=== PATIENT | male | born 1955 | race Caucasian/White ===

== ENCOUNTER 2022-10-04 17:00 | Observation (INO) | payer SELFPAY ==
[2022-10-04] VITALS (24 sets, daily range): BP systolic 141–178; BP diastolic 80–95; PULSE 62; RESP 18; TEMP 36.9; O2SAT 93–100
--- NOTE | ~2022-10-04 | XR_ITS ---
XR abdomen/kub 1V 10/05/2022 08:51 Indication: Left renal stones Procedure: KUB Comparison: CT dated 10/04/2022 Findings: There are left renal stones, the largest vaguely outline measuring 11 mm. Bowel pattern is nonobstructive. Lung bases unremarkable. There is lumbar spondylosis. Mild osteoarthritis of the hips . No acute osseous abnormality. Impression: 1: Left nephrolithiasis. Reviewed, dictated and finalized at location B. Impression: 1: Left nephrolithiasis.
--- NOTE | ~2022-10-04 | CT_ITS ---
EXAMINATION: CT abdomen pelvis w con DATE: 10/04/2022 20:06 INDICATION: Flank pain. Low abdominal pain. TECHNIQUE: Computed tomography (CT) of the abdomen and pelvis was performed with 100 mL Omnipaque 350 intravenous contrast. Automated exposure control and iterative reconstruction technique were employe d. The dose-length product was 736.76 mGy-cm. COMPARISON: None. FINDINGS: The visualized portions of the lung bases demonstrate mild atelectasis. No pleural effusion . Cardiomegaly is noted. There are coronary artery calcifications. No pericardial effusion. There are cysts in the liver measuring up to 2.3 cm. The gallbladder, spleen, pancreas, and adrenal glands are normal. There is cortical thinning of the kidneys. There are cysts in right kidney measuring up to 5 mm. There is a 5 mm stone in left kidney. There is a 10 mm stone in left renal pelvis. There is urot helial thickening in left renal pelvis with surrounding fat stranding, consistent with inflammation. The prostate is mildly enlarged. There is an umbilical hernia containing fat. The appendix measures 9 mm in diameter. There is no fat stranding around the appendix. There is fat stranding at the root of the small bowel mesentery. There are no pathologically enlarged lymph nodes. There is no free intrap eritoneal fluid. Aortic atherosclerosis is noted. There is mild thoracic and lumbar spondylosis. Ther e is a chronic burst fracture of T12. IMPRESSION: 1. Stones in the left kidney and left renal pelvis with left-sided pyelitis. 2. Fat stranding at the root of the small bowel mesentery, consistent with edema versus inflammation/ scarring (mesenteric panniculitis). 3. Umbilical hernia containing fat. 4. Appendiceal diameter of 9 mm, which is indeterminate for appendicitis. Reviewed, dictated and finalized at location E. IMPRESSION: 1. Stones in the left kidney and left renal pelvis with left-sided pyelitis. 2. Fat stranding at the root of the small bowel mesentery, consistent with gloria a versus inflammation/scarring (mesenteric panniculitis). 3. Umbilical hernia containing fat. 4. Appendiceal diameter of 9 mm, which is indeterminate for appendicitis.
--- NOTE | 2022-10-04 18:45 | ED.MALEGU ---
HPI - Male Genitourinary General Chief complaint: Urogenital-Male Stated complaint: left testicle pain/kidney pain Time Seen by Provider: 10/04/22 18:45 Source: patient Mode of arrival: ambulatory Limitations: language barrier (hearing impairment) History of Present Illness HPI Narrative: Patient is a 67-year-old male with a history of hypertension and hearing impairment, presenting to the emergency department for evaluation lower abdominal pain. Patient reports a 4-day history of intermittent lower abdominal pain that was dull, aching in nature. No significant flank pain. No testicular pain. No dysuria, hematuria, urinary frequency or straining with urination. Patient denies fever, chills, nausea and vomiting. Patient reports pain is aching in nature, denies radiation into the upper abdomen or chest. Denies associated cough or shortness of breath. Patient reports previous diagnosis of kidney stone on the left. No recurrent pain. Patient states that pain is currently resolved at the time of my assessment. Related Data Allergies Allergy/AdvReac Type Severity Reaction Status Date / Time No Known Allergies Allergy Verified 10/04/22 17:02 Review of Systems Review of Systems: CONSTITUTIONAL: Denies fever, chills, or sweats. EYES: Denies visual changes, redness, or discharge. ENT: Denies rhinorrhea, congestion, sore throat, or otalgia. CARDIOVASCULAR: Denies chest pain, palpitations, or edema. RESPIRATORY: Denies cough or dyspnea. GASTROINTESTINAL: Denies current abdominal pain, nausea, vomiting, or diarrhea. GENITOURINARY: Denies dysuria or hematuria. SKIN: Denies rash or itching. MUSCULOSKELETAL: Denies back pain, joint pain, or myalgia. NEUROLOGIC: Denies headache, numbness, or weakness. [facility] Past Medical History Medical History (Updated 10/04/22 @ 22:17 by Mirian Macias MD) Hypertension Mesenteric panniculitis Exam Narrative: GENERAL: Awake, alert, conversant HEAD: Normocephalic, atraumatic. EYES: PERRLA and EOMI. ENT: Nares clear, no rhinorrhea or epistaxis. Mucous membranes moist. Patient with right tympanic membrane with mild edema, discharge present, there is earwax present, mild erythema of the external ear canal. Left external ear canal is edematous, erythematous, difficult to view tympanic membrane. No postauricular erythema. NECK: Supple. CHEST: No respiratory distress, breathing even and non labored HEART: Regular rate, sinus rhythm ABDOMEN:Non distended, non tender in the right lower quadrant, left lower quadrant, left CVA tenderness mild EXTREMITIES: Normal range of motion. No edema. SKIN: Warm, dry, no rash. NEURO:No focal deficits. Alert and oriented x3 Course Vital Signs Vital signs: Vital Signs Temperature 36.9 C 10/04/22 17:19 Pulse Rate 62 10/04/22 17:19 Respiratory Rate 18 10/04/22 17:19 Blood Pressure 178/89 H 10/04/22 17:19 Pulse Oximetry 97 10/04/22 17:19 Oxygen Delivery Room Air 10/04/22 17:19 Temperature 36.9 C 10/04/22 17:19 Pulse Rate 62 10/04/22 17:19 Respiratory Rate 18 10/04/22 17:19 Blood Pressure 178/89 H 10/04/22 17:19 Pulse Oximetry 97 10/04/22 17:19 Oxygen Delivery Room Air 10/04/22 17:19 MDM - Male Genitourinary MDM Narrative Medical decision making narrative: Medical decision making narrative: -Presentation: Patient presenting for evaluation of abdominal pain and left flank pain in the history of known nephrolithiasis. At the time of assessment, patient is mildly hypertensive, other vital signs are stable. No pain at the time of my assessment although I can elicit mild left flank tenderness on exam. Patient also with what appears to be bilateral otitis externa, greater on the left when compared to the right. No postauricular erythema or tenderness. -DDX includes but is not limited to: Mastoiditis, otitis externa, pyelonephritis, nephrolithiasis, renal colic -Co-morbidities complicating care: Hypert
[2022-10-04 19:29] LABS: Basophils Absolute Auto 0.1 K/mm3 (0.0-0.1); Basophils Percent Auto 0.8 % (0.2-1.2); Eosinophils Absolute Auto 0.3 K/mm3 (0-0.3); Hematocrit 47.3 % (42.0-52.0); Hemoglobin 16.1 g/dL (14.0-18.0); Immature Granulocyte Absolute 0.02 K/mm3 (0.00-0.031); Immature Granulocyte Percent A 0.3 % (0-0.5); Lymphocytes Absolute Auto 1.64 K/mm3 (0.9-3.2); Lymphocytes Percent Auto 24.8 % (18.3-44.2); Mean Corpuscular Hemoglobin 30.5 pg (26-34); Mean Corpuscular Volume 89.6 fl (80-100); Mean Platelet Volume 9.1 fl (7.4-10.4); Monocytes Absolute Auto 0.7 K/mm3 (0.1-0.6); Monocytes Percent Auto 10.4 % (2.6-8.5); Neutrophils Absolute Auto 3.9 K/mm3 (1.3-6.7); Neutrophils Percent Auto 58.7 % (45.5-73.1); Platelet Count Result 193 k/mm3 (150-375); Red Blood Count 5.28 M/mm3 (4.6-6.20); Red Cell Distribution Width 13.1 % (11.5-14.5); White Blood Count 6.6 K/mm3 (4.5-10.0)
[2022-10-04 19:38] LABS: Alanine Aminotransferase 32 U/L (6-50); Albumin Level 4.4 g/dL (3.5-5.1); Alkaline Phosphatase 74 U/L (38-126); Anion Gap 5 mmol/L (8-16); Aspartate Amino Transferase 31 U/L (17-59); Blood Urea Nitrogen 19 mg/dL (9-20); Carbon Dioxide 29 mmol/L (22-30); Chloride 103 mmol/L (98-107); Estimated CRCL calculation 70 ml/min; Estimated Glomerular Filt Rate > 60; Glucose 93 mg/dL (65-110); Lipase 75 U/L (23-300); Potassium 4.1 mmol/L (3.4-5.0); Sodium 137 mmol/L (137-145)
[2022-10-04 19:51] LABS: Appearance Urine Clear (Clear); Bacteria Urine None Seen /hpf; Bilirubin Urine Negative (Negative); Blood Urine 2+ (Negative); Color Urine Yellow (Yellow); Glucose Urine UA Negative (Negative); Ketones Urine Negative (Negative); Leukocyte Esterase Ur Negative LEU/UL (Negative); Nitrate Urine Negative (Negative); Protein Urine 2+ mg/dL (Negative); Squamous Epithelial Cell Urine None seen /hpf (Few); WBC Urine 0-5 /hpf; pH Urine 5.5 (5.0-9.0)
[2022-10-04 19:58] LABS: Add Urine Microscopic? YES
[2022-10-04] MEDS: SODIUM CHLORIDE 0.9% IV 1,000 ML 999 ML IV CONT (21:20)
--- NOTE | 2022-10-04 21:50 | PM.IMHP ---
H&P: HPI History of Present Illness Date/Time: 10/04/22 21:50 Chief Complaint: 57 years old male with past medical history of hearing impairment hypertension presented to the hospital with lower abdominal pain dull in nature worsening gradually denies fever or chills denies nausea or vomiting patient has history of kidney stone in the past CT scan of the abdomen concern for left kidney stone and left pyelitis urology was consulted also mesenteric panniculitis also concern for acute appendicitis general surgery was consulted patient was started on broad-spectrum IV antibiotics patient also complained of ear pain associated with ear discharge patient stated that he had a fall in the past with small hematoma had CT twice and was told that the hematoma was resolved probable otitis externa started on Cipro otic drops ENT was consulted Patient is deaf use writing to communicate Review of Systems Review of Systems: Twelve system review was negative except above [facility] Past Medical History Medical History (Updated 10/04/22 @ 22:17 by Mirian Macias MD) Hypertension Mesenteric panniculitis Meds Home Medications and Allergies Allergies Allergy/AdvReac Type Severity Reaction Status Date / Time No Known Allergies Allergy Verified 10/04/22 17:02 Vital Signs Vital Signs - 24 hr 10/04/22 17:19 Temperature 98.4 F Pulse Rate 62 Respiratory Rate 18 Blood Pressure 178/89 H Pulse Oximetry 97 Oxygen Delivery Room Air Exam Narrative: GENERAL: Well appearing, well-nourished, non-toxic, in no acute distress. HEAD: Year tenderness NECK: Supple. No adenopathy, no masses. RESPIRATORY: Airway patent, respirations nonlabored. Clear to auscultation bilaterally, no rales, rhonchi, wheezing. CARDIOVASCULAR: Regular rate and rhythm without murmurs ABDOMINAL: Positive tenderness MUSCULOSKELETAL: No edema. SKIN: Warm, dry, normal color. No rashes. NEURO: Moves all extremities PSYCHIATRIC: Appropriate mood and affect. Normal interaction. H&P: Results Labs Labs: Short CBC 10/04/22 Range/Units 19:24 WBC 6.6 (4.5-10.0) K/mm3 Hgb 16.1 (14.0-18.0) g/dL Hct 47.3 (42.0-52.0) % Plt Count 193 (150-375) k/mm3 [facility] 10/04/22 19:24 Sodium 137 Potassium 4.1 Chloride 103 Carbon Dioxide 29 BUN 19 Creatinine 0.90 Glucose 93 Calcium 9.0 Liver Function 10/04/22 Range/Units 19:24 Total Bilirubin 1.0 (0.2-1.3) mg/dL AST 31 (17-59) U/L ALT 32 (6-50) U/L Alkaline Phosphatase 74 (38-126) U/L Albumin 4.4 (3.5-5.1) g/dL Urine 10/04/22 Range/Units 19:33 Urine Color Yellow (Yellow) Urine Appearance Clear (Clear) Urine pH 5.5 (5.0-9.0) Ur Specific Roberts 1.030 (1.001-1.035) Urine Protein 2+ H (Negative) mg/dL Urine Glucose (UA) Negative (Negative) mg/dL Assessment and Plan Assessment and plan (1) Acute pyelitis: Code(s): N10 - Acute pyelonephritis Status: Acute Assessment and Plan: Follow urine culture Reviewed CBC CMP UA discussed with ER physician Continue IV antibiotic As multiple kidney stones Urology was consulted Continue IV Zosyn for now (2) Acute otitis externa of left ear: Code(s): H60.502 - Unspecified acute noninfective otitis externa, left ear Status: Acute Assessment and Plan: Cipro otic ear drop (3) Kidney stone: Code(s): N20.0 - Calculus of kidney Status: Acute Assessment and Plan: Urology consult continue IV antibiotic (4) Abnormal CT of the abdomen: Code(s): R93.5 - Abnormal findings on diagnostic imaging of other abdominal regions, including retroperitoneum Status: Acute Assessment and Plan: Concern for appendicitis IV antibiotics general surgeon was consulted (5) Mesenteric panniculitis: Code(s): K65.4 - Sclerosing mesenteritis Status: Acute Assessment and Plan: Probable viral versus bacterial mesenteri
[2022-10-05] VITALS (7 sets, daily range): BP systolic 143–171; BP diastolic 79–96; PULSE 51–66; RESP 16–18; TEMP 36.5–36.7; O2SAT 98–100; BMI 29.5
[2022-10-05 00:21] LABS: CRP 0.6 mg/dL (<1.0)
[2022-10-05] MEDS: SODIUM CHLORIDE 0.9% IV 1,000 ML 100 ML IV CONT (00:25)
[2022-10-05] MEDS: CIPROFLOXACIN HC OTIC 10 ML 5 DROP EACH EAR ×2 (00:28→08:53)
[2022-10-05 01:08] LABS: Procalcitonin 0.1 ng/mL
--- NOTE | 2022-10-05 01:20 | ADMGEN ---
This patient, Raymundo Rios, was admitted to Medical Room 252-01. Patient/family oriented to hospital policies and general routines including ID bracelet, bed and alarms, visiting hours, pain management, procedures, bathroom and other care routines, personal items, smoking policy, room service/diet, and visiting hours. Information on how to activate the Rapid Response Team has been discussed. Patient/Family are encouraged to report perceived risks to care and to ask questions if they do not understand what they are told or what they should do.
[2022-10-05 05:03] LABS: Basophils Percent Auto 0.6 % (0.2-1.2); Eosinophils Absolute Auto 0.3 K/mm3 (0-0.3); Eosinophils Percent Auto 6.2 % (0-4.4); Hematocrit 44.2 % (42.0-52.0); Immature Granulocyte Absolute 0.01 K/mm3 (0.00-0.031); Immature Granulocyte Percent A 0.2 % (0-0.5); Lymphocytes Absolute Auto 1.51 K/mm3 (0.9-3.2); Lymphocytes Percent Auto 31.1 % (18.3-44.2); Mean Corpuscular HGB Conc 33.9 g/dl (32-36); Mean Corpuscular Hemoglobin 30.1 pg (26-34); Mean Corpuscular Volume 88.8 fl (80-100); Monocytes Absolute Auto 0.5 K/mm3 (0.1-0.6); Monocytes Percent Auto 10.3 % (2.6-8.5); Neutrophils Absolute Auto 2.5 K/mm3 (1.3-6.7); Neutrophils Percent Auto 51.6 % (45.5-73.1); Platelet Count Result 165 k/mm3 (150-375); Red Blood Count 4.98 M/mm3 (4.6-6.20); Red Cell Distribution Width 13.1 % (11.5-14.5); White Blood Count 4.9 K/mm3 (4.5-10.0)
[2022-10-05 05:13] LABS: Alanine Aminotransferase 28 U/L (6-50); Albumin Level 3.8 g/dL (3.5-5.1); Alkaline Phosphatase 66 U/L (38-126); Anion Gap 4 mmol/L (8-16); Aspartate Amino Transferase 27 U/L (17-59); Bilirubin,Total 1.3 mg/dL (0.2-1.3); Blood Urea Nitrogen 16 mg/dL (9-20); Calcium 8.3 mg/dL (8.4-10.2); Carbon Dioxide 26 mmol/L (22-30); Chloride 106 mmol/L (98-107); Estimated CRCL calculation 78 ml/min; Estimated Glomerular Filt Rate > 60; Glucose 90 mg/dL (65-110); Potassium 3.9 mmol/L (3.4-5.0); Sodium 136 mmol/L (137-145)
[2022-10-05] MEDS: PIPERACILLN/TAZ 3.375GM/NS50ML 3.375 GM/50 ML BAG IVPB ×3 (05:17→12:32)
--- NOTE | 2022-10-05 07:53 | P.PNIM_ITS ---
Progress Note: A&P Assessment and Plan (1) Acute pyelitis: Code(s): N10 - Acute pyelonephritis Status: Acute Assessment and Plan: * UA showed blood in the urine * CT of the abd/pel showed stones in the left kidney and left renal pelvis with left-sided pyelitis * Reviewed CBC CMP UA discussed with ER physician * Continue IV antibiotic * As multiple kidney stones * Urology was consulted * Continue IV Zosyn for now (2) Acute otitis externa of left ear: Code(s): H60.502 - Unspecified acute noninfective otitis externa, left ear Status: Acute Assessment and Plan: * Cipro otic ear drop * Dr. Phipps consulted * Trend symptoms (3) Kidney stone: Code(s): N20.0 - Calculus of kidney Status: Acute Assessment and Plan: * Urology consult * Continue IV antibiotic * CT does indicated stones * Lithotripsy possibly today * trend urine output * Bladder scan if indicated (4) Abnormal CT of the abdomen: Code(s): R93.5 - Abnormal findings on diagnostic imaging of other abdominal regions, including retroperitoneum Status: Acute Assessment and Plan: * Concern for appendicitis * IV antibiotics continued * general surgery consulted * Pain medications ordered (5) Mesenteric panniculitis: Code(s): K65.4 - Sclerosing mesenteritis Status: Acute Assessment and Plan: * Probable viral versus bacterial mesenteric panniculitis * Continue IV antibiotics * Conservative measures * IV fluids (6) Hypertension: Code(s): I10 - Essential (primary) hypertension Status: Acute Assessment and Plan: * Currently BP is 143/79 * Continue home medications * Added p.r.n. hydralazine * Trend blood pressure * Adjust therapy as indicated Time Spent With Patient Time: 48 minutes Time with patient: Greater than 35 minutes Subjective Date/time seen: 10/05/22 07:53 Interval history: 10/05/22 10/04/22? 21:50 57 years old male with past medical history of hearing impairment hypertension presented to the hospital with lower abdominal pain dull in nature worsening gradually denies fever or chills denies nausea or vomiting patient has history of kidney stone in the past CT scan of the abdomen concern for left kidney stone and left pyelitis urology was consulted also mesenteric panniculitis also concern for acute appendicitis general surgery was consulted patient was started on broad-spectrum IV antibiotics patient also complained of ear pain associated with ear discharge patient stated that he had a fall in the past with small hematoma had CT twice and was told that the hematoma was resolved probable otitis externa started on Cipro otic drops ENT was consulted Patient is deaf use writing to communicate Review of Systems Review of Systems: All systems reviewed & are unremarkable except as noted in HPI and below Exam Narrative: General: well-nourished, well-appearing 67-year-old male, sitting up in bed, comfortable, NARD Neuro: awake, alert and oriented x4, speech clear, no focal neuro deficits noted HEENMT: normocephalic, atraumatic, EOMI, sclerae anicteric, moist oral mucosa Respiratory: Clear to auscultation bilaterally without crackles, rhonchi or wheezes, nonlabored breathing C
--- NOTE | 2022-10-05 07:53 | PM.IMPN ---
Progress Note: A&P Assessment and Plan (1) Acute pyelitis: Code(s): N10 - Acute pyelonephritis Status: Acute Assessment and Plan: UA showed blood in the urine CT of the abd/pel showed stones in the left kidney and left renal pelvis with left-sided pyelitis Reviewed CBC CMP UA discussed with ER physician Continue IV antibiotic As multiple kidney stones Urology was consulted Continue IV Zosyn for now (2) Acute otitis externa of left ear: Code(s): H60.502 - Unspecified acute noninfective otitis externa, left ear Status: Acute Assessment and Plan: Cipro otic ear drop Dr. Phipps consulted Trend symptoms (3) Kidney stone: Code(s): N20.0 - Calculus of kidney Status: Acute Assessment and Plan: Urology consult Continue IV antibiotic CT does indicated stones Lithotripsy possibly today trend urine output Bladder scan if indicated (4) Abnormal CT of the abdomen: Code(s): R93.5 - Abnormal findings on diagnostic imaging of other abdominal regions, including retroperitoneum Status: Acute Assessment and Plan: Concern for appendicitis IV antibiotics continued general surgery consulted Pain medications ordered (5) Mesenteric panniculitis: Code(s): K65.4 - Sclerosing mesenteritis Status: Acute Assessment and Plan: Probable viral versus bacterial mesenteric panniculitis Continue IV antibiotics Conservative measures IV fluids (6) Hypertension: Code(s): I10 - Essential (primary) hypertension Status: Acute Assessment and Plan: Currently BP is 143/79 Continue home medications Added p.r.n. hydralazine Trend blood pressure Adjust therapy as indicated Time Spent With Patient Time: 48 minutes Time with patient: Greater than 35 minutes Subjective Date/time seen: 10/05/22 07:53 Interval history: 10/05/22 10/04/22? 21:50 57 years old male with past medical history of hearing impairment hypertension presented to the hospital with lower abdominal pain dull in nature worsening gradually denies fever or chills denies nausea or vomiting patient has history of kidney stone in the past CT scan of the abdomen concern for left kidney stone and left pyelitis urology was consulted also mesenteric panniculitis also concern for acute appendicitis general surgery was consulted patient was started on broad-spectrum IV antibiotics patient also complained of ear pain associated with ear discharge patient stated that he had a fall in the past with small hematoma had CT twice and was told that the hematoma was resolved probable otitis externa started on Cipro otic drops ENT was consulted Patient is deaf use writing to communicate Review of Systems Review of Systems: All systems reviewed & are unremarkable except as noted in HPI and below Exam Narrative: General: well-nourished, well-appearing 67-year-old male, sitting up in bed, comfortable, NARD Neuro: awake, alert and oriented x4, speech clear, no focal neuro deficits noted HEENMT: normocephalic, atraumatic, EOMI, sclerae anicteric, moist oral mucosa Respiratory: Clear to auscultation bilaterally without crackles, rhonchi or wheezes, nonlabored breathing Cardio: regular rate, regular rhythm with S1-S2 Abdomen: nondistended, normoactive bowel sounds, soft, nontender to palpation Extremities: no edema, erythema, or tenderness to palpation, DP pulses 2+ bilaterally Skin: no rashes or lesions, warm and dry Psych: appropriate mood and affect, judgment and insight intact Objective Data Vital Signs Vital Signs: Vital Signs - 24 hr 10/04/22 17:19 10/04/22 17:50 10/04/22 17:52 Temperature 98.4 F Pulse Rate 62 Respiratory Rate 18 Blood Pressure 178/89 H 168/87 H Pulse Oximetry 97 97 98 Oxygen Delivery Room Air 10/04/22 18:00 10/04/22 18:01 05
[2022-10-05] MEDS: ACETAMINOPHEN 325 MG TABLET 650 MG PO (08:52)
[2022-10-05] MEDS: lisinopriL 20 MG TABLET PO (08:53)
[2022-10-05] MEDS: METOPROLOL TARTRATE 50 MG TAB PO (08:53)
[2022-10-05] MEDS: FAMOTIDINE 20 MG TABLET PO (08:53)
--- NOTE | 2022-10-05 11:14 | WPDURCON ---
Assessment and Plan Assessment and plan (1) Kidney stone: Code(s): N20.0 - Calculus of kidney Status: Acute Assessment and Plan: Will plan to do a left ESWL in a few weeks. A urine culture should be sent today. Will plan to go to the OR today and place a stent to help relieve the pain with Dr. Su. Obtain Consent: Cystoscopy, left ureteroscopy with stent placement, left retrograde pyelogram. Keep NPO. (2) Acute pyelitis: Code(s): N10 - Acute pyelonephritis Status: Acute Urology Consult Note HPI Date Seen: 10/05/22 Time Seen: 09:00 Requesting Physician: Mónica Vale MD Primary Care Provider: UNKNOWN,DOCTOR Consult Narrative Reason for consult: Left Renal Stone Narrative: Raymundo Rios is a 67 year old male who presented to the ER last night with c/o of ongoing, worsening left flank pain that radiates to the left scrotum. It has been present for 4 days, but started weeks ago and has been intermittent since. The past four days it is has been persistent. He denies hematuria, dysuria, frequency or urgency to urinate. He is afebrile, WBC is 4.9, creatinine 0.80 and UA shows just RBC's but is not indicative of infection at this time. No urine culture has been ordered. He is currently on Zosyn. He had a CT scan which shows stones in the left kidney and renal pelvis with pyelitis as well as a KUB that shows the left renal stone. The patient is deaf but can communicate via writing notes and can read lips. Review of Systems Cardiovascular: Cardiovascular: Denies chest pain Respiratory: Respiratory: Reports no additional respiratory complaints [facility] Past Medical History Medical History Hypertension Mesenteric panniculitis Social History Social History Smoking status: Never smoker Alcohol intake: never Substance use: never Lack of Transportation: No Lack of Food: Never True Current Housing: I Have Housing Concerned About Future Housing: No Difficulty Paying Gas/Electric Bills: No Difficulty Paying for Meds: No Currently Unemployed: No Education: Decline to Answer Difficulty w/ Childcare or Family Care: No Spiritual care concerns: No Meds Home Medications and Allergies Home Medications Medication Instructions Recorded Confirmed Type lisinopril 20 mg tablet 20 mg PO DAILY 10/05/22 10/05/22 History metoprolol tartrate 50 mg tablet 50 mg PO DAILY 10/05/22 10/05/22 History Allergies Allergy/AdvReac Type Severity Reaction Status Date / Time No Known Allergies Allergy Verified 10/04/22 17:02 Vital Signs Vital Signs - 24 hr 10/04/22 17:19 10/04/22 17:50 10/04/22 17:52 Temperature 98.4 F Pulse Rate 62 Respiratory Rate 18 Blood Pressure 178/89 H 168/87 H Pulse Oximetry 97 97 98 Oxygen Delivery Room Air 10/04/22 18:00 10/04/22 18:01 10/04/22 18:16 Temperature Pulse Rate Respiratory Rate Blood Pressure 155/88 H 154/84 H Pulse Oximetry 98 98 98 Oxygen Delivery 10/04/22 18:17 10/04/22 18:31 10/04/22 18:46 Temperature Pulse Rate Respiratory Rate Blood Pressure 152/84 H 141/80 H Pulse Oximetry 98 Oxygen Delivery 10/04/22 19:16 10/04/22 19:31 10/04/22 19:46 Temperature Pulse Rate Respiratory Rate Blood Pressure 156/86 H 162/87 H 169/87 H Pulse Oximetry Oxygen Delivery 10/04/22 20:07 10/04/22 20:09 10/04/22 20:15 Temperature Pulse Rate Respiratory Rate Blood Pressure 176/91 H Pulse Oximetry 100 100 93 Oxygen Delivery 10/04/22 20:16 10/04/22 20:31 10/04/22 20:32 Temperature Pulse Rate Respiratory Rate Blood Pressure 162/88 H 161/90 H Pulse Oximetry 99 100 100 Oxygen Delivery 10/04/22 20:46 10/04/22 20:47 10/04/22 21:00 Temperature Pulse Rate Respiratory Rate Blood Pressure 153/88
--- NOTE | 2022-10-05 11:52 | PM.CNGS ---
Assessment and Plan Assessment and plan (1) Abnormal CT of the abdomen: Code(s): R93.5 - Abnormal findings on diagnostic imaging of other abdominal regions, including retroperitoneum Status: Acute Assessment and Plan: no evidence of acute appendicitis, exam completely benign, CT reviewed, no acute surgical issues, will s/o, call c ?s, issues (2) Kidney stone: Code(s): N20.0 - Calculus of kidney Status: Acute Assessment and Plan: urology planning on OR today, can start diet after procedure History of Present Illness Consult details Consult date: 10/05/22 Reason for consult: abdominal pain Requesting physician: Mónica Vale M.A., MD Narrative: The patient is a 67-year-old male presenting to the emergency department complaining of lower abdominal pain radiating to the left flank. The patient reports the pain is mostly in his left lower abdomen. The patient reports associated anorexia, some nausea. The patient reports this is very similar to previous kidney stones in the past. Workup in the emergency department, including imaging, was significant for left obstructing kidney stone with pyelitis. There was also noted to be a dilated appendix, however no inflammation around the appendix. The patient denies any right lower quadrant pain. The patient denies any fevers or chills. Review of Systems Review of Systems: ROS unobtainable: Yes other (pt has very poor hearing and is difficult to communicate with) [facility] Past Medical History Medical History Hypertension Mesenteric panniculitis Social History Social History Smoking status: Never smoker Alcohol intake: never Substance use: never Lack of Transportation: No Lack of Food: Never True Current Housing: I Have Housing Concerned About Future Housing: No Difficulty Paying Gas/Electric Bills: No Difficulty Paying for Meds: No Currently Unemployed: No Education: Decline to Answer Difficulty w/ Childcare or Family Care: No Spiritual care concerns: No Comments Surgical history - no abd surgeries FH - no CRC, IBD Meds Home Medications and Allergies Home Medications Medication Instructions Recorded Confirmed Type lisinopril 20 mg tablet 20 mg PO DAILY 10/05/22 10/05/22 History metoprolol tartrate 50 mg tablet 50 mg PO DAILY 10/05/22 10/05/22 History Allergies Allergy/AdvReac Type Severity Reaction Status Date / Time No Known Allergies Allergy Verified 10/04/22 17:02 Vital Signs Vital Signs - 24 hr 10/04/22 17:19 10/04/22 17:50 10/04/22 17:52 Temperature 36.9 C Pulse Rate 62 Respiratory Rate 18 Blood Pressure 178/89 H 168/87 H Pulse Oximetry 97 97 98 Oxygen Delivery Room Air 10/04/22 18:00 10/04/22 18:01 10/04/22 18:16 Temperature Pulse Rate Respiratory Rate Blood Pressure 155/88 H 154/84 H Pulse Oximetry 98 98 98 Oxygen Delivery 10/04/22 18:17 10/04/22 18:31 10/04/22 18:46 Temperature Pulse Rate Respiratory Rate Blood Pressure 152/84 H 141/80 H Pulse Oximetry 98 Oxygen Delivery 10/04/22 19:16 10/04/22 19:31 10/04/22 19:46 Temperature Pulse Rate Respiratory Rate Blood Pressure 156/86 H 162/87 H 169/87 H Pulse Oximetry Oxygen Delivery 10/04/22 20:07 10/04/22 20:09 10/04/22 20:15 Temperature Pulse Rate Respiratory Rate Blood Pressure 176/91 H Pulse Oximetry 100 100 93 Oxygen Delivery 10/04/22 20:16 10/04/22 20:31 10/04/22 20:32 Temperature Pulse Rate Respiratory Rate Blood Pressure 162/88 H 161/90 H Pulse Oximetry 99 100 100 Oxygen Delivery 10/04/22 20:46 10/04/22 20:47 10/04/22 21:00 Temperature Pulse Rate Respiratory Rate Blood Pressure 153/88 H Pulse Oximetry 97 97 97 Oxygen Delivery 10/04/22 21:01 10/04/22 21:16 10/04/22 21:17 Tem
--- NOTE | 2022-10-05 12:02 | WPDCN ---
Assessment and Plan Assessment and plan (1) Otorrhea of both ears: Code(s): H92.13 - Otorrhea, bilateral Status: Acute Assessment and Plan: keep using the drops t.i.d. 5 drops, have the patient follow up with me next week please. Otorrhea is likely fungal but antibacterial drops for 5 days or so will help as better discern what type of infection is causing the otorrhea. HPI Data of Consult Date/Time: 10/05/22 12:02 Requesting Physician: Mónica Vale MD Primary Care Provider: UNKNOWN,DOCTOR Consult Narrative Narrative: Raymundo Rios is a 67 year old male Ear drainage loss of hearing patient reports hearing loss progressive over years. Has been able to hear for a decade or so. Patient currently on Cipro drops. Not really painful just lots of otorrhea muffled hearing loss. Review of Systems Review of Systems: All systems reviewed & are unremarkable except as noted in HPI and below PMFSH Past Medical History Medical History Hypertension Mesenteric panniculitis Social History Social History Smoking status: Never smoker Alcohol intake: never Substance use: never Lack of Transportation: No Lack of Food: Never True Current Housing: I Have Housing Concerned About Future Housing: No Difficulty Paying Gas/Electric Bills: No Difficulty Paying for Meds: No Currently Unemployed: No Education: Decline to Answer Difficulty w/ Childcare or Family Care: No Spiritual care concerns: No Meds Home Medications and Allergies Home Medications Medication Instructions Recorded Confirmed Type lisinopril 20 mg tablet 20 mg PO DAILY 10/05/22 10/05/22 History metoprolol tartrate 50 mg tablet 50 mg PO DAILY 10/05/22 10/05/22 History Allergies Allergy/AdvReac Type Severity Reaction Status Date / Time No Known Allergies Allergy Verified 10/04/22 17:02 Vital Signs Vital Signs - 24 hr 10/04/22 17:19 10/04/22 17:50 10/04/22 17:52 Temperature 36.9 C Pulse Rate 62 Respiratory Rate 18 Blood Pressure 178/89 H 168/87 H Pulse Oximetry 97 97 98 Oxygen Delivery Room Air 10/04/22 18:00 10/04/22 18:01 10/04/22 18:16 Temperature Pulse Rate Respiratory Rate Blood Pressure 155/88 H 154/84 H Pulse Oximetry 98 98 98 Oxygen Delivery 10/04/22 18:17 10/04/22 18:31 10/04/22 18:46 Temperature Pulse Rate Respiratory Rate Blood Pressure 152/84 H 141/80 H Pulse Oximetry 98 Oxygen Delivery 10/04/22 19:16 10/04/22 19:31 10/04/22 19:46 Temperature Pulse Rate Respiratory Rate Blood Pressure 156/86 H 162/87 H 169/87 H Pulse Oximetry Oxygen Delivery 10/04/22 20:07 10/04/22 20:09 10/04/22 20:15 Temperature Pulse Rate Respiratory Rate Blood Pressure 176/91 H Pulse Oximetry 100 100 93 Oxygen Delivery 10/04/22 20:16 10/04/22 20:31 10/04/22 20:32 Temperature Pulse Rate Respiratory Rate Blood Pressure 162/88 H 161/90 H Pulse Oximetry 99 100 100 Oxygen Delivery 10/04/22 20:46 10/04/22 20:47 10/04/22 21:00 Temperature Pulse Rate Respiratory Rate Blood Pressure 153/88 H Pulse Oximetry 97 97 97 Oxygen Delivery 10/04/22 21:01 10/04/22 21:16 10/04/22 21:17 Temperature Pulse Rate Respiratory Rate Blood Pressure 156/86 H 159/95 H Pulse Oximetry 98 98 Oxygen Delivery 10/05/22 00:00 10/05/22 00:04 10/05/22 01:27 Temperature Pulse Rate Respiratory Rate Blood Pressure 157/89 H Pulse Oximetry 98 Oxygen Delivery Room Air 10/05/22 00:50 10/05/22 01:31 10/05/22 05:00 Temperature 36.7 C 36.7 C Pulse Rate 55 L 65 Respiratory Rate 18 18 Blood Pressure 171/96 H 157/91 H 143/79 H Pulse Oximetry 100 98 Oxygen Delivery 10/05/22 08:53 10/05/22 08:45 Temperature Pulse Rate 66 Respiratory
--- NOTE | 2022-10-05 12:10 | PC.NURSE ---
pt to surgery via bed, sent with 1200 antibiotic dose
--- NOTE | 2022-10-05 12:42 | WPDANESEPPF ---
Anes - Initial Pre Proc Eval Procedure: Operation Date: 10/05/22 13:00 Proposed Procedures p Cystoscopy, Left Retrograde Pyelogram, Left Stent Placement - Isaak Su MD Date/Time: 10/05/22 12:42 Surgeon: Mónica Vale MD Pre Op Diagnosis: Pyelitis, Otitis Externa Patient Data Age: 67 Gender: M Height: 1.78 m Weight: 93.2 kg Last Vital Signs Temp 36.5 C 10/05/22 12:29 Pulse 51 L 10/05/22 12:29 Resp 16 10/05/22 12:29 BP 158/79 H 10/05/22 12:29 Pulse Ox 100 10/05/22 12:29 O2 Del Method Room Air 10/05/22 12:29 Allergies Allergy/AdvReac Type Severity Reaction Status Date / Time No Known Allergies Allergy Verified 10/04/22 17:02 Home Medications Medication Instructions Recorded Confirmed Type lisinopril 20 mg tablet 20 mg PO DAILY 10/05/22 10/05/22 History metoprolol tartrate 50 mg tablet 50 mg PO DAILY 10/05/22 10/05/22 History Laboratory Tests 10/04/22 10/04/22 10/04/22 19:24 19:33 23:07 WBC 6.6 K/mm3 (4.5-10.0) RBC 5.28 M/mm3 (4.6-6.20) Hgb 16.1 g/dL (14.0-18.0) Hct 47.3 % (42.0-52.0) MCV 89.6 fl (80-100) MCH 30.5 pg (26-34) MCHC 34.0 g/dl (32-36) RDW 13.1 % (11.5-14.5) Plt Count 193 k/mm3 (150-375) MPV 9.1 fl (7.4-10.4) Immature Gran % (Auto) 0.3 % (0-0.5) Neut % (Auto) 58.7 % (45.5-73.1) Lymph % (Auto) 24.8 % (18.3-44.2) Lucas % (Auto) 10.4 H % (2.6-8.5) Eos % (Auto) 5.0 H % (0-4.4) Baso % (Auto) 0.8 % (0.2-1.2) Lymph # (Auto) 1.64 K/mm3 (0.9-3.2) Lucas # (Auto) 0.7 H K/mm3 (0.1-0.6) Eos # (Auto) 0.3 K/mm3 (0-0.3) Baso # (Auto) 0.1 K/mm3 (0.0-0.1) Abs Immat Gran (auto) 0.02 K/mm3 (0.00-0.031) Absolute Neuts (auto) 3.9 K/mm3 (1.3-6.7) Absolute Nucleated RBC 0.0 K/mm3 (0.0-0.012) Nucleated RBC % 0.0 % (0.0-0.2) Sodium 137 mmol/L (137-145) Potassium 4.1 mmol/L (3.4-5.0) Chloride 103 mmol/L (98-107) Carbon Dioxide 29 mmol/L (22-30) Anion Gap 5 L mmol/L (8-16) BUN 19 mg/dL (9-20) Creatinine 0.90 mg/dL (0.7-1.3) Estim Creat Clear Calc 70 ml/min Estimated GFR > 60 (59 - ) Glucose 93 mg/dL (65-110) Calcium 9.0 mg/dL (8.4-10.2) Total Bilirubin 1.0 mg/dL (0.2-1.3) AST 31 U/L (17-59) ALT 32 U/L (6-50) Alkaline Phosphatase 74 U/L (38-126) C-Reactive Protein 0.6 mg/dL (<1.0) Total Protein 7.0 g/dL (6.3-8.2) Albumin 4.4 g/dL (3.5-5.1) Lipase 75 U/L (23-300) Procalcitonin 0.1 ng/mL Urine Color Yellow (Yellow) Urine Appearance Clear (Clear) Urine pH 5.5 (5.0-9.0) Ur Specific [place] 1.030 (1.001-1.035) Urine Protein 2+ H mg/dL (Negative) Urine Glucose (UA) Negative mg/dL (Negative) Urine Ketones Negative mg/dL (Negative) Ur Blood (Man) 2+ H (Negative) Urine Nitrate Negative (Negative) Urine Bilirubin Negative (Negative) Urine Urobilinogen 1.0 mg/dL (<2.0) Leukocyte Esterase Rfl Negative SUZANNE/UL (Negative) Urine RBC 11-20 H /hpf (0-2) Urine WBC 0-5 /hpf Ur Squamous Epith Cells None seen /hpf (Few) Urine Bacteria None seen /hpf Urine Casts 3-5 10/05/22 04:54 WBC 4.9 K/mm3 (4.5-10.0) RBC 4.98 M/mm3 (4.6-6.20) Hgb 15.0 g/dL (14.0-18.0) Hct 44.2 % (42.0-52.0) MCV 88.8 fl (80-100) MCH 30.1 pg (26-34) MCHC 33.9 g/dl (32-36) RDW 13.1 % (11.5-14.5) Plt Count 165 k/mm3 (150-375) MPV 9.0 f
[2022-10-05] MEDS: LACTATED RINGERS 1,000 ML 30 ML IV CONT (12:55)
--- NOTE | 2022-10-05 14:21 | WPDHPUPDATE1 ---
History and Physical Update Update Date/Time: 10/05/22 14:21 History and Physical has been reviewed, including an updated exam of the patient. There are NO changes in the patient's condition. Risks, benefits, and alternatives have been discussed and questions answered. Patient agrees to proceed with procedure. Proceed with cysto right retrograde right stent placement
--- NOTE | 2022-10-05 14:22 | WPDHPUPDATE1 ---
History and Physical Update Update Date/Time: 10/05/22 14:22 History and Physical has been reviewed, including an updated exam of the patient. There are NO changes in the patient's condition. Risks, benefits, and alternatives have been discussed and questions answered. Patient agrees to proceed with procedure. Proceed with cysto left retrograde left stent placement. Prior H and P update was in air. This is the left side that needs to be done
--- NOTE | 2022-10-05 14:56 | SUR.PREOP ---
1420 pt informed delay in surgery. communicating with writing on paper. called nephew eran to come to pre op. 1440 dr banuelos here and talked to pt further delay in procedure awaiting or room availability. pt does not wish to stay for procedure,wanting to go home which is in [place]. pt talked with on phone and nephew. no complaints pain currrently. dr banuelos cancelled procedure with pt wanting to seek futher treatment at home.
--- NOTE | 2022-10-05 15:02 | SUR.PREOP ---
katie medina given report on pt and cancellation of procedure. pt taken back to room.
--- NOTE | 2022-10-05 15:11 | PC.NURSE ---
pt returned to floor via stretcher
--- NOTE | 2022-10-05 15:31 | P.DS_ITS ---
DS: Admitting Diagnosis Discharge Date 10/05/22 1100 Admitting Diagnosis Kidney stone, otitis media DS: Discharge Diagnosis Discharge Diagnosis (1) Acute pyelitis: Code(s): N10 - Acute pyelonephritis Status: Acute Assessment and Plan: * UA showed blood in the urine * CT of the abd/pel showed stones in the left kidney and left renal pelvis with left-sided pyelitis * Reviewed CBC CMP UA discussed with ER physician * Continue IV antibiotic * As multiple kidney stones * Urology was consulted * Continue IV Zosyn for now * Was going to go for stent, however got anxious and decided to wait till he got home (2) Acute otitis externa of left ear: Code(s): H60.502 - Unspecified acute noninfective otitis externa, left ear Status: Acute Assessment and Plan: * Cipro otic ear drop * Dr. Phipps consulted * Trend symptoms (3) Kidney stone: Code(s): N20.0 - Calculus of kidney Status: Acute Assessment and Plan: * Urology consult * Continue IV antibiotic * CT does indicated stones * Lithotripsy possibly today * trend urine output * Bladder scan if indicated (4) Abnormal CT of the abdomen: Code(s): R93.5 - Abnormal findings on diagnostic imaging of other abdominal regions, including retroperitoneum Status: Acute Assessment and Plan: * Concern for appendicitis * IV antibiotics continued * general surgery consulted * Pain medications ordered (5) Mesenteric panniculitis: Code(s): K65.4 - Sclerosing mesenteritis Status: Acute Assessment and Plan: * Probable viral versus bacterial mesenteric panniculitis * Continue IV antibiotics * Conservative measures * IV fluids (6) Hypertension: Code(s): I10 - Essential (primary) hypertension Status: Acute Assessment and Plan: * Currently BP is 143/79 * Continue home medications * Added p.r.n. hydralazine * Trend blood pressure * Adjust therapy as indicated DS: Summary Hospital Course Hospital Course: Patient is 67-year-old male with a past medical history of hearing impairment, hypertension who presented the ED with complaints of lower abdominal pain and left testicle pain. Upon arrival CT was performed and showed pyelitis and patient was started on IV antibiotics. Urology was consulted and patient was planning to go down for a cystoscopy with a stent however was unable to wait and decided that he his pain was tolerable at this time. Patient was also noted to have otitis externa of the left ear and was started on drops. Patient was seen in consult with Dr. Phipps who is recommending drops and follow-up in next week. CT also indicated a possible acute appendicitis. General surgery was consulted however exam was benign and patient is not having any troubles or issues at this time. Patient is doing okay at this time. Patient is stable for discharge at this time per labs and vital signs. Patient is denying any current pain and states that he feels okay. He denies any chest pain, shortness a breath, nausea, vomiting, diarrhea constipation. Unknown source of why he has a kidney stones is presented. Patient does drink milk and sodas however he stated that he has been having kidney stones for a long time. Patient will need to follow up with Urology when he gets home to [place]. Status at
--- NOTE | 2022-10-05 15:31 | PM.DS ---
DS: Admitting Diagnosis Discharge Date 10/05/22 1100 Admitting Diagnosis Kidney stone, otitis media DS: Discharge Diagnosis Discharge Diagnosis (1) Acute pyelitis: Code(s): N10 - Acute pyelonephritis Status: Acute Assessment and Plan: UA showed blood in the urine CT of the abd/pel showed stones in the left kidney and left renal pelvis with left-sided pyelitis Reviewed CBC CMP UA discussed with ER physician Continue IV antibiotic As multiple kidney stones Urology was consulted Continue IV Zosyn for now Was going to go for stent, however got anxious and decided to wait till he got home (2) Acute otitis externa of left ear: Code(s): H60.502 - Unspecified acute noninfective otitis externa, left ear Status: Acute Assessment and Plan: Cipro otic ear drop Dr. Phipps consulted Trend symptoms (3) Kidney stone: Code(s): N20.0 - Calculus of kidney Status: Acute Assessment and Plan: Urology consult Continue IV antibiotic CT does indicated stones Lithotripsy possibly today trend urine output Bladder scan if indicated (4) Abnormal CT of the abdomen: Code(s): R93.5 - Abnormal findings on diagnostic imaging of other abdominal regions, including retroperitoneum Status: Acute Assessment and Plan: Concern for appendicitis IV antibiotics continued general surgery consulted Pain medications ordered (5) Mesenteric panniculitis: Code(s): K65.4 - Sclerosing mesenteritis Status: Acute Assessment and Plan: Probable viral versus bacterial mesenteric panniculitis Continue IV antibiotics Conservative measures IV fluids (6) Hypertension: Code(s): I10 - Essential (primary) hypertension Status: Acute Assessment and Plan: Currently BP is 143/79 Continue home medications Added p.r.n. hydralazine Trend blood pressure Adjust therapy as indicated DS: Summary Hospital Course Hospital Course: Patient is 67-year-old male with a past medical history of hearing impairment, hypertension who presented the ED with complaints of lower abdominal pain and left testicle pain. Upon arrival CT was performed and showed pyelitis and patient was started on IV antibiotics. Urology was consulted and patient was planning to go down for a cystoscopy with a stent however was unable to wait and decided that he his pain was tolerable at this time. Patient was also noted to have otitis externa of the left ear and was started on drops. Patient was seen in consult with Dr. Phipps who is recommending drops and follow-up in next week. CT also indicated a possible acute appendicitis. General surgery was consulted however exam was benign and patient is not having any troubles or issues at this time. Patient is doing okay at this time. Patient is stable for discharge at this time per labs and vital signs. Patient is denying any current pain and states that he feels okay. He denies any chest pain, shortness a breath, nausea, vomiting, diarrhea constipation. Unknown source of why he has a kidney stones is presented. Patient does drink milk and sodas however he stated that he has been having kidney stones for a long time. Patient will need to follow up with Urology when he gets home to [place]. Status at Discharge Functional status at discharge: independent ambulation Overall status at discharge: patient is back to baseline Time Spent with Patient Time attestation: Total time spent providing and/or coordinating discharge services: 48 minutes Time spent: Greater than 30 minutes Specific discharge activities: Diagnostic testing, chart review, developing a treatment plan, education, care coordination documentation, physical exam, result review Exam Narrative: General: well-nourished, well-appearing 67-year-old male, sitting up in bed, com
== END 2022-10-05 15:55 | disposition home or self-care (01) ==
LOC: ANHED 21:49 → ANH2MED 10-05 09:25
PROVIDERS: Admitting Provider Internal Medicine; Emergency Provider Emergency Medicine; Visit Provider Nurse Practitioner
DX: N10 Acute pyelonephritis (principal); H60.502 Unspecified acute noninfective otitis externa, left ear; N20.0 Calculus of kidney; R93.5 Abnormal findings on diagnostic imaging of other abdominal regions, including retroperitoneum; K65.4 Sclerosing mesenteritis; I10 Essential (primary) hypertension; K42.9 Umbilical hernia without obstruction or gangrene; H92.13 Otorrhea, bilateral; R10.30 Lower abdominal pain, unspecified; E66.3 Overweight; Z68.29 Body mass index [BMI] 29.0-29.9, adult; Z79.899 Other long term (current) drug therapy
CPT/HCPCS: 36415; 74018; 74177; 80053; 81001; 83690; 84145; 85025; 86140; 96365; 96375; 96376; 99285; A9270; G0378; J0696; J2543; J7030; J7120; Q9967